=== PATIENT | female | born 1995 | race Caucasian/White ===

== ENCOUNTER 2017-09-25 12:04 | Outpatient (CLI) | payer OTHER | END 2017-09-26 12:18 | disposition home or self-care (01) | LOC: OBS/DEL 12:04 | DX: O60.03 Preterm labor without delivery, third trimester (principal) ==

== ENCOUNTER 2017-10-20 06:09 | Inpatient (IN) | payer OTHER ==
[~2017-10-20] VITALS: Ht 160 cm; Wt 83.9 kg
[2017-10-20] MEDS ORDERED: PRENATAL 19 TA1 EAC1 PO (08:26)
[2017-10-23] MEDS ORDERED: PREPLUS CA-FE1 EACH PO (10:11)
[2017-10-23] MEDS ORDERED: NAPR500T14 PO (10:11)
== END 2017-10-23 14:31 | DRG 765 ==
LOC: LDR 06:09 → OB/GYN 06:09
PROVIDERS: Specialist
PROC: 3E033VJ Introduction of Other Hormone into Peripheral Vein, Percutaneous Approach (ICD-10-PCS; 2017-10-20)
PROC: 4A1HXCZ Monitoring of Products of Conception, Cardiac Rate, External Approach (ICD-10-PCS; 2017-10-20)
PROC: 4A033R1 Measurement of Arterial Saturation, Peripheral, Percutaneous Approach (ICD-10-PCS; 2017-10-20)
PROC: 10D00Z1 Extraction of Products of Conception, Low, Open Approach (ICD-10-PCS; principal; 2017-10-20 16:15)
DX: O36.5930 Maternal care for other known or suspected poor fetal growth, third trimester, not applicable or unspecified (principal); O60.14X0 Preterm labor third trimester with preterm delivery third trimester, not applicable or unspecified; O36.8130 Decreased fetal movements, third trimester, not applicable or unspecified; O61.0 Failed medical induction of labor; Z3A.36 36 weeks gestation of pregnancy; Z37.0 Single live birth